=== PATIENT | male | born 1985 ===

== ENCOUNTER 2017-09-21 00:38 | Emergency (ER) | payer OTHER ==
--- NOTE | 2017-09-21 01:38 | ED PDOC ---
Arrival/HPI <Dallin Vu - Last Filed: 09/21/17 02:33> - General Historian: Patient - History of Present Illness Time/Duration: Prior to Arrival Symptom Onset: Gradual Symptom Course: Worsening Quality: Pressure, Burning Severity Level: Mild, Moderate Activities at Onset: Rest Context: Home, Work <Gricel Laboy - Last Filed: 09/21/17 11:23> - General Chief Complaint: Abnormal Skin Integrity Time Seen by Provider: 09/21/17 01:27 - History of Present Illness Narrative History of Present Illness (Text): 09/21/17 01:34 Pt is a 32 yo M c/o left buttock pain since Wednesday and fever and chills x 1 day. Pt reports that he noticed a soreness while traveling from [place]. when he arrived home, he noticed irritation and some pus coming from the sore. Pt reports his mother attempted to express the boil but could not get it all. Pt now feels chills and fever since last night. Denies cp, sob, n/v/d or DELEON. ( Gricel Laboy) Past Medical History - Provider Review Nursing Documentation Reviewed: Yes - Travel History Have you recently traveled outside [place] w/in the past 3 mons?: Yes If Yes, travel location?: [place] - Past History Past History: No Previous - Infectious Disease Hx of Infectious Diseases: None - Tetanus Immunization Tetanus Immunization: Unknown - Psychiatric Hx Substance Use: No <Gricel Laboy - Last Filed: 09/21/17 11:23> Family/Social History - Physician Review Nursing Documentation Reviewed: Yes Family/Social History: No Known Family HX Smoking Status: Never Smoked Hx Alcohol Use: Yes Frequency of alcohol use: Socially Hx Substance Use: No <Gricel Laboy - Last Filed: 09/21/17 11:23> Allergies/Home Meds <Dallin Vu - Last Filed: 09/21/17 02:33> <Gricel Laboy - Last Filed: 09/21/17 11:23> Allergies/Adverse Reactions: Allergies No Known Allergies Allergy (Verified 09/21/17 00:43) Review of Systems - Physician Review All systems were reviewed & negative as marked: Yes - Review of Systems Constitutional: Fevers (began in last 12hrs) Eyes: Normal ENT: Normal Respiratory: Normal Cardiovascular: Normal Gastrointestinal: Normal Genitourinary Male: Normal Musculoskeletal: Normal Skin: Abscess (left buttocks) Neurological: Normal Endocrine: Normal Hemo/Lymphatic: Normal Psychiatric: Normal <Gricel Laboy - Last Filed: 09/21/17 11:23> Physical Exam Vital Signs Reviewed: Yes Temperature: Febrile Blood Pressure: Normal Pulse: Regular Respiratory Rate: Normal Appearance: Positive for: Non-Toxic, Uncomfortable Pain Distress: Mild Mental Status: Positive for: Alert and Oriented X 3 - Systems Exam Head: Present: Atraumatic, Normocephalic Pupils: Present: PERRL Extroacular Muscles: Present: EOMI Conjunctiva: Present: Normal Mouth: Present: Moist Mucous Membranes Neck: Present: Normal Range of Motion Respiratory/Chest: Present: Clear to Auscultation, Good Air Exchange. No: Respiratory Distress, Accessory Muscle Use Cardiovascular: Present: Regular Rate and Rhythm, Normal S1, S2. No: Murmurs Abdomen: Present: Normal Bowel Sounds. No: Tenderness, Distention, Peritoneal Signs Back: Present: Normal Inspection Upper Extremity: Present: Normal Inspection. No: Cyanosis, Edema Lower Extremity: Present: Normal Inspection. No: Edema Neurological: Present: GCS=15, CN II-XII Intact, Speech Normal Skin: Present: Warm, Dry, Normal Color, Abscess (left intergluteal cleft margin) . No: Rashes Psychiatric: Present: Alert, Oriented x 3, Normal Insight, Normal Concentration <Gricel Laboy - Last Filed: 09/21/17 11:23> Vital Signs Temp Pulse Resp BP Pulse Ox 09/21/17 04:01 99.1 F 80 18 103/56 L 99 09/21/17 01:45 101.1 F H 101 H 18 124/75 100 Medical Decision Making <Dallin Vu - Last Filed: 09/21/17 02:33> <Gricel Laboy - Last Filed: 09/21/17 11:23> ED Course and Treatment: Impression Pt is a 32 yo M c/o left buttock pain since Wednesday and fever and chills x 1 day. Plan: I&D left gluteal line packed and dressed keflex 500 mg po stat Progress Note Informed pt of incision and drainage procedure and gave verbal consent proceeded to prep and drape left glute infiltrated abscess site with 5 cc lidocaine 1% and epinephrine #11 scalpel used, boil was expressed (1.5 ml purulent material) and wound culture obtained packed w 1/4 iodoform strip packed into wound Pt informed of returning in 2 days for wound check Home on Bactrim DS tab q12 x 10 days 09/21/17 11:19 (Gricel Laboy) - Lab Interpretations Lab Results: 09/21/17 02:40 09/21/17 02:40 Lab Results 09/21/17 02:40: Sodium 138, Potassium 3.8, Chloride 104, Carbon Dioxide 26, Anion Gap 12, BUN 11, Creatinine 0.7 L, Est GFR ( Amer) > 60, Est GFR ( Non-Af Amer) > 60, Random Glucose 128 H, Calcium 9.1, Total Bilirubin 1.0, AST 61 H, ALT 54, Alkaline Phosphatase 74, Total Protein 7.1, Albumin 3.9, Globulin 3.2, Albumin/Globulin Ratio 1.2 09/21/17 02:40: WBC 9.2, RBC 4.53, Hgb 14.3, Hct 41.3 L, MCV 91.2, MCH 31.6, MCHC 34.6, RDW 12.9, Plt Count 231, MPV 9.3, Gran % 74.0 H, Lymph % (Auto) 18.6 L, [place] % (Auto) 6.8 H, Eos % (Auto) 0.5 L, Baso % (Auto) 0.1, Gran # 6.81 H, Lymph # 1.7, [place] # 0.6, Eos # 0.1, Baso # 0.01 - Medication Orders Current Medication Orders: Discontinued Medications Acetaminophen (Tylenol 325mg Tab) 650 mg PO STAT STA Stop: 09/21/17 02:04 Last Admin: 09/21/17 02:06 Dose: 650 mg Cephalexin Monohydrate (Keflex) 500 mg PO STAT STA PRN Reason: Protocol Stop: 09/21/17 02:21 Last Admin: 09/21/17 02:46 Dose: 500 mg - PA / [employer] / Resident Statement /DO has reviewed & agrees with the documentation as recorded. <Dallin Vu - Last Filed: 09/21/17 02:33> Disposition/Present on Arrival <Dallin Vu - Last Filed: 09/21/17 02:33> - Present on Arrival Any Indicators Present on Arrival: Yes History of DVT/PE: No History of Uncontrolled Diabetes: No Urinary Catheter: No History of Decub. Ulcer: No History Surgical Site Infection Following: None - Disposition Have Diagnosis and Disposition been Completed?: Yes Disposition Time: 03:00 Patient Plan: Discharge <Gricel Laboy - Last Filed: 09/21/17 11:23> - Disposition Diagnosis: Wound abscess Disposition: HOME/ ROUTINE Condition: STABLE Discharge Instructions (ExitCare): Sulfamethoxazole/Trimethoprim (By mouth), Abscess (ED), Abscess Follow-up (ED) Additional Instructions: Please return to the emergency department in 2 days for a wound site check. If you develop a fever, increased pain at the wound site, return sooner than days. Keep the site clean and dry at all times. Prescriptions: Sulfamethoxazole/Trimethoprim [Bactrim DS 800 mg-160 mg] 1 tab PO Q12 10 Days # 20 tab Ibuprofen [Motrin Tab] 600 mg PO Q6 PRN 5 Days #20 tab PRN Reason: pain/fever Forms: [employer] (Japanese)
[2017-09-21 01:56] VITALS: RESP 18
[2017-09-21 02:54] LABS: BASO # 0.01 K/mm3 (0.0-2.0); BASO % 0.1 % (0.0-3.0); EOS # 0.1 (0.0-0.7); EOS % 0.5 % (1.5-5.0); GRAN # 6.81 (1.4-6.5); HEMOGLOBIN 14.3 g/dL (14.0-18.0); LYMPH # 1.7 (1.2-3.4); LYMPH % 18.6 % (22.0-35.0); MEAN CELL VOLUME 91.2 fl (80.0-105.0); MEAN CORPUSCULAR HEMOGLOBIN 31.6 pg (25.0-35.0); MEAN CORPUSCULAR HGB CONC 34.6 g/dl (31.0-37.0); MEAN PLATELET VOLUME 9.3 fl (7.0-11.0); MONO # 0.6 (0.1-0.6); MONO % 6.8 % (1.0-6.0); RBC 4.53 10^6/uL (3.5-6.1); RED CELL DISTRIBUTION WIDTH 12.9 % (11.5-14.5); WHITE BLOOD COUNT 9.2 10^3/ul (4.5-11.0)
[2017-09-21 03:03] LABS: ALB/GLOB RATIO 1.2 (1.1-1.8); ALBUMIN 3.9 g/dL (3.0-4.8); ALT/SGPT 54 U/L (7-56); AST/SGOT 61 U/L (17-59); BLOOD UREA NITROGEN 11 mg/dL (7-21); CALCIUM 9.1 mg/dL (8.4-10.5); GFR AFRICAN-AMERICAN > 60; GFR NON-AFRICAN AMERICAN > 60
[2017-09-21 04:02] VITALS: BP 103/56; PULSE 80; TEMP 99.1; O2SAT 99
== END 2017-09-21 04:02 | disposition home or self-care (01) ==
LOC: ED 00:38
DX: L02.31 Cutaneous abscess of buttock (principal)

== ENCOUNTER 2019-01-17 19:10 | Emergency (ER) | payer OTHER ==
[2019-01-17 19:10] VITALS: BMI 32.3
[2019-01-17 19:52] VITALS: BP 117/75; PULSE 76; RESP 15; TEMP 98.8; O2SAT 100
[2019-01-17] MEDS: Lidocaine 5% Patch TD STA (20:26)
--- NOTE | 2019-01-17 20:51 | ED PDOC ---
Arrival/HPI - General Chief Complaint: Back Pain Time Seen by Provider: 01/17/19 19:55 Historian: Patient - History of Present Illness Narrative History of Present Illness (Text): 20:47 33 y/o male with no significant PMH presents to ED c/o left sided lower back pain x 1 week. Pt states one week ago he lifted a heavy object at work and has been experiencing back pain since that time. Pain is sharp and radiates intermittently down into his left leg. Pain is worse with movement and weight bearing. Has been taking advil for pain with some relief, last dose yesterday. Denies saddle anesthesia, fever, chills, abdominal pain, urinary symptoms, extremity numbness/weakness/paresthesias, bowel/bladder incontinence, headache, chest pain, SOB, calf pain/swelling, or any other associated symptoms. Past Medical History - Provider Review Nursing Documentation Reviewed: Yes - Past History Past History: No Previous - Infectious Disease Hx of Infectious Diseases: None - Tetanus Immunization Tetanus Immunization: Unknown - Psychiatric Hx Substance Use: No - Anesthesia Hx Anesthesia: No Family/Social History - Physician Review Nursing Documentation Reviewed: Yes Family/Social History: No Known Family HX Smoking Status: Never Smoked Hx Alcohol Use: Yes Hx Substance Use: No Allergies/Home Meds Allergies/Adverse Reactions: Allergies No Known Allergies Allergy (Verified 01/17/19 19:50) Review of Systems - Review of Systems Constitutional: Normal. absent: Fevers Eyes: Normal. absent: Vision Changes Respiratory: Normal. absent: SOB, Cough Cardiovascular: Normal. absent: Chest Pain, Palpitations Gastrointestinal: Normal. absent: Abdominal Pain, Nausea, Vomiting Genitourinary Male: Normal. absent: Dysuria, Frequency Musculoskeletal: Back Pain, Other (leg pain) Skin: Normal. absent: Rash Neurological: Normal. absent: Headache, Dizziness Physical Exam Vital Signs Reviewed: Yes Vital Signs Temp Pulse Resp BP Pulse Ox 01/17/19 19:51 98.8 F 76 15 117/75 100 Temperature: Afebrile Blood Pressure: Normal Pulse: Regular Respiratory Rate: Normal Appearance: Positive for: Well-Appearing, Non-Toxic, Comfortable Pain Distress: None Mental Status: Positive for: Alert and Oriented X 3 - Systems Exam Head: Present: Atraumatic, Normocephalic Pupils: Present: PERRL Extroacular Muscles: Present: EOMI Conjunctiva: Present: Normal Mouth: Present: Moist Mucous Membranes Neck: Present: Normal Range of Motion. No: Meningeal Signs Respiratory/Chest: Present: Clear to Auscultation, Good Air Exchange. No: Respiratory Distress, Accessory Muscle Use Cardiovascular: Present: Regular Rate and Rhythm, Normal S1, S2, Peripheal Pulses Present Abdomen: No: Tenderness Back: Present: Normal Inspection, Paraspinal Tenderness (left lumbar), Pain with Leg Raise (left at 30 degrees). No: CVA Tenderness, Midline Tenderness Upper Extremity: Present: Normal Inspection, Normal ROM. No: Cyanosis, Edema Lower Extremity: Present: Normal Inspection, NORMAL PULSES, Normal ROM, Neurovascularly Intact, Capillary Refill < 2 s. No: Edema, CALF TENDERNESS, Tenderness, Temperature Abnormalties Neurological: Present: GCS=15, Speech Normal, Motor Func Grossly Intact, Normal Sensory Function, Gait Normal Skin: Present: Warm, Dry, Normal Color. No: Rashes Psychiatric: Present: Alert, Oriented x 3, Normal Insight, Normal Concentration, Normal Affect, Normal Mood Medical Decision Making ED Course and Treatment: Initial Plan: * Valium, Toradol, Lidoderm Patch 20:46 On re-evaluation patient reports some improvement in pain. 21:30 Patient reports complete resolution in pain. Comfortable with discharge home. Advised PMD and orthopedic followup. Diagnostic testing results and plan of care discussed with patient. Strict instructions given regarding prescription use, importance of followup, and signs/symptoms to return to ER including worsening pain, saddle anesthesia, fever, bowel/bladder incontinence, or any other new/worsening symptoms. Pt verbalized understanding of discussion. Patient is A&Ox3, ambulating with steady gait, with vital signs stable for discharge. - Medication Orders Current Medication Orders: Discontinued Medications Diazepam (Valium) 5 mg PO ONCE ONE; Protocol Stop: 01/17/19 20:01 Last Admin: 01/17/19 20:26 Dose: 5 mg Ketorolac Tromethamine (Toradol) 60 mg IM STAT STA Stop: 01/17/19 20:01 Last Admin: 01/17/19 20:26 Dose: 60 mg MAR Pain Assessment Document 01/17/19 20:26 (Rec: 01/17/19 20:27 [id number]) Pain Reassessment Is this a pain reassessment? Yes IM Administration Charges Document 01/17/19 20:26 TISH (Rec: 01/17/19 20:27 [id number]) Charges for Administration # of IM Administrations 1 Lidocaine (Lidoderm) 1 ea TD STAT STA Stop: 01/17/19 20:01 Last Admin: 01/17/19 20:26 Dose: 1 ea MAR Transdermal Patch Site Document 01/17/19 20:26 (Rec: 01/17/19 20:26 [id number]) Transdermal Patch Site Transdermal Patch Site Left Lower Back Disposition/Present on Arrival - Present on Arrival Any Indicators Present on Arrival: No History of DVT/PE: No History of Uncontrolled Diabetes: No Urinary Catheter: No History of Decub. Ulcer: No History Surgical Site Infection Following: None - Disposition Have Diagnosis and Disposition been Completed?: Yes Diagnosis: Low back pain with sciatica Disposition: HOME/ ROUTINE Disposition Time: 21:30 Condition: IMPROVED Discharge Instructions (ExitCare): Sciatica, Sciatica Exercises Additional Instructions: Ibuprofen every 8 hours as needed for pain, take with food Flexeril nightly as needed for pain Lidoderm patches daily, 12 hours on 12 hours off Rest, no strenuous activity or heavy lifting Followup with orthopedics within 2 days Followup with primary within 2 days Return to ER with any new/worsening symptoms Prescriptions: Cyclobenzaprine [Cyclobenzaprine HCl] 10 mg PO HS #7 tab Ibuprofen [Motrin Tab] 600 mg PO Q8 PRN #30 tab PRN Reason: Pain, Moderate (4-7) Lidocaine 5% [Lidoderm] 1 ea TD DAILY PRN #30 patch PRN Reason: Pain, Mild (1-3) Referrals: Maurisio Bradford MD [Staff Provider] - Follow up with primary Forms: [employer] (Kiswahili), WORK NOTE
== END 2019-01-17 21:49 | disposition home or self-care (01) ==
LOC: ED 19:10
DX: M54.40 Lumbago with sciatica, unspecified side (principal)
CPT/HCPCS: 96372; 99282; J1885